=== PATIENT | male | born 1990 ===

== ENCOUNTER 2017-08-05 14:22 | Emergency (ER) | payer SELFPAY ==
[~2017-08-05] VITALS: Ht 177.8 cm; Wt 86.0 kg
[2017-08-05 14:30] VITALS: BP 127/60; PULSE 77; RESP 18; TEMP 98; O2SAT 99
--- NOTE | 2017-08-05 15:05 | PD ---
HPI Chief Complaint: Complaint Time Seen by Provider: 14:41 Travel History International Travel<30 days: No Contact w/Intl Traveler<30days: No Traveled to known affect area: No History of Present Illness HPI 26-year-old male presents emerged from complaining that his recent sexual partner called him and told him that she was positive for chlamydia. He states that he did not have sexual intercourse but had fellatio. He has no symptoms. History Past Medical History Medical History: Denies Significant Hx Social History Alcohol Use: Yes Tobacco Use: No Allergies-Medications (Allergen,Severity, Reaction): Coded Allergies: Penicillins (Verified Allergy, Unknown, 08/05/17) Review of Systems Except as stated in HPI: all other systems reviewed are Neg Physical Exam Narrative GENERAL: Well-appearing 26-year-old man, no acute distress. SKIN: Warm and dry. CARDIOVASCULAR: Warm and well perfused. RESPIRATORY: Normal rate and effort. MUSCULOSKELETAL: No deformities. NEUROLOGICAL: Awake and alert. No gross deficits. Data Data Last Documented VS Vital Signs Date Time Temp Pulse Resp B/P (MAP) Pulse Ox O2 Delivery O2 Flow Rate FiO2 08/05/17 14:30 98.0 77 18 127/60 (82) 99 Orders Orders Gc And Chlamydia Pcr (08/05/17 14:55) MDM Medical Decision Making Medical Screen Exam Complete: Yes Emergency Medical Condition: Yes Differential Diagnosis STD exposure Narrative Course While 26-year-old presents with concern for STD exposure. Previous partner had chlamydia but there is no genital to genital contact. Very unlikely that required chlamydia in this way. Would like testing which is fine. Recommend outpatient follow-up for further testing for other routine STI such as hepatitis syphilis and HIV. Diagnosis Primary Impression: STD exposure Patient Instructions: General Instructions Additional Instructions: Follow-up with your primary physician with the health department for further routine STD testing. Med/Other Pt SpecificInfo: No Change to Meds Disposition: 01 DISCHARGE HOME Condition: George Chau MD Aug 05, 2017 15:05
== END 2017-08-05 15:28 | disposition home or self-care (01) ==
LOC: NEPD 14:22
DX: Z20.2 Contact with and (suspected) exposure to infections with a predominantly sexual mode of transmission (principal)
CPT/HCPCS: 87491; 87591; 99283

== ENCOUNTER 2017-08-18 11:30 | Emergency (ER) | payer SELFPAY ==
[~2017-08-18] VITALS: Ht 180.3 cm; Wt 80.0 kg
[2017-08-18 11:32] VITALS: BP 125/62; PULSE 79; RESP 18; TEMP 97.8; O2SAT 98
== END 2017-08-18 11:45 | disposition left against medical advice (07) ==
LOC: NED 11:30
DX: Z20.2 Contact with and (suspected) exposure to infections with a predominantly sexual mode of transmission (principal); Z53.21 Procedure and treatment not carried out due to patient leaving prior to being seen by health care provider
CPT/HCPCS: 99281